=== PATIENT | female | born 1990 | race Caucasian/White ===

== ENCOUNTER → 2025-03-04 | Outpatient (CLI) | payer OTHER ==
[~2025-03-04] MED LIST: ACET500 PO; AMOX500 PO; BUPR150T2 PO; BUPR75 PO; BUSP5 PO; Bactrim Ds Tab1 EACH PO; CLOB.05TC TP; CYCL10 PO; DIPATR PO; FLUO.05TC TOP; HYDACE25S PR; HYDMOR4 PO; HYDPAM50 PO; IBUP600 PO; IRON; KETO10 PO; MULVITMINE; MULVITMINE PO; NAPR500 PO; NAPR550 PO; NIFE10 PO; NIFE60ER PO; NITR100CA PO; OLAN5 PO; ONDA4ODT MM; ONDA8ODT MM; OXYACE5T PO; PENVK500 PO; PROACE100 PO; PROM25 PO; RXCLIN PO; RXHYDMOR2 PO; RXNAPNA550 PO; RXPENVK250 PO; RXTRAM50 PO; SULTRIDS PO; TRAM50 PO
[2025-03-04 19:36] LABS: BASOPHILS ABSOLUTE AUTO 0.04 K/mm3 (0.00-0.23); BASOPHILS PERCENT AUTO 1 % (0-2); EOSINOPHILS ABSOLUTE AUTO 0.13 K/mm3 (0.00-0.68); EOSINOPHILS PERCENT AUTO 2 % (0-6); Hematocrit 37.5 % (33.0-51.0); Hemoglobin 13.5 g/dL (11.5-16.0); IMMATURE GRAN ABSOLUTE AUTO 0.02 K/mm3 (0.00-0.10); IMMATURE GRAN PERCENT AUTO 0 % (0-1); LYMPHOCYTES ABSOLUTE AUTO 2.68 K/mm3 (0.84-5.20); LYMPHOCYTES PERCENT AUTO 35 % (21-46); MONOCYTES ABSOLUTE AUTO 0.41 K/mm3 (0.16-1.47); MONOCYTES PERCENT AUTO 5 % (4-13); Mean Corpuscular HGB Conc 36.0 g/dL (31.5-36.5); Mean Corpuscular Volume 84 fL (80-100); NEUTROPHILS ABSOLUTE AUTO 4.29 K/mm3 (1.96-9.15); NEUTROPHILS PERCENT AUTO 57 % (41-73); NRBC ABSOLUTE 0.00 K/mm3 (0.00-0.02); NRBC Auto 0.0 /100 WBC (0.0-0.2); Platelet Count 281 K/mm3 (150-400); RDW Coefficient Variation 12.7 % (11.7-14.2); RDW Standard Deviation 38.4 fL (35.1-46.3)
[2025-03-04 20:26] LABS: Ferritin, Serum 34.0 ng/mL (8-252); Magnesium, Blood 2.1 mg/dL (1.6-2.4); Thyroid Stimulating Hormone 2.24 uIU/mL (0.360-4.800); Total Iron Binding Capacity 353.0 ug/dL (250-450)
[2025-03-04 20:27] LABS: Alanine Aminotransfer (ALT/SGP 34.0 U/L (12-78); Albumin, Blood 4.4 g/dL (3.4-5.0); Albumin/Globulin Ratio 1.3 (0.8-1.8); Anion Gap 8.0 mmol/L (3-11); Aspartate Aminotrans (AST/SGOT 13.0 U/L (12-37); Bilirubin, Total 0.3 mg/dL (0.1-1.0); Blood Urea Nitrogen 17.0 mg/dL (8-24); CO2, Blood 29.0 mmol/L (21-32); Calcium, Blood 9.1 mg/dL (8.5-10.1); Chloride, Blood 102.0 mmol/L (98-108); Creatinine, Blood 0.84 mg/dL (0.40-1.00); Globulin, Blood 3.4 g/dL (2.2-4.0); Glucose, Blood 100.0 mg/dL (70-99); Potassium, Blood 3.3 mmol/L (3.5-5.5); Sodium, Blood 136.0 mmol/L (136-145); Total Protein, Blood 7.8 g/dL (6.4-8.2)
== END ==
LOC: LAB 19:27 → LAB SHORT 19:27
DX: G25.81 Restless legs syndrome (principal)
CPT/HCPCS: 80053; 82728; 83540; 83550; 83735; 84443; 85025